=== PATIENT | male | born 1955 | race Caucasian/White ===

== ENCOUNTER 2023-08-24 00:11 | Inpatient (IN) ==
[2023-08-24] MEDS ORDERED: IOPAMIDOL 100 ML BOTTLE IV ONE ×2 (00:12)
[2023-08-24] MEDS: ASPIRIN 81 MG TAB.CHEW CHEWED ONE (00:32)
[2023-08-24] MEDS: METOPROLOL TARTRATE 5 MG/5 ML VIAL IV ONE ×2 (00:42→02:07)
[2023-08-24 00:44] LABS: Basophils # (Auto) 0.04 K/mcL (0.00-0.30); Basophils % (Auto) 0.4 % (0.0-2.0); Eosinophils # (Auto) 0.17 K/mcL (0.00-0.70); Eosinophils % (Auto) 1.6 % (0.0-7.0); Hematocrit 45.1 % (40.1-51.0); Hemoglobin 14.3 g/dL (13.7-17.5); Lymphocytes # (Auto) 2.46 K/mcL (1.50-4.80); Lymphocytes % (Auto) 23.1 % (15.5-49.0); Mean Cell Volume 88.4 fL (80.0-100.0); Mean Corpuscular HGB Conc 31.7 g/dL (31.0-36.0); Mean Platelet Volume 10.9 fL (8.8-12.5); Monocytes # (Auto) 1.15 K/mcL (0.10-0.90); Monocytes % (Auto) 10.8 % (1.0-12.0); Neutrophils % (Auto) 63.8 % (38.0-78.0); Platelet Count 175 K/mcL (140-440); Red Cell Distribution Width 13.2 % (11.5-14.5); WBC 10.7 K/mcL (4.5-11.0)
[2023-08-24] MEDS: fentaNYL 100 MCG/2 ML VIAL IV ONE ×2 (00:52→03:36)
[2023-08-24 01:06] LABS: ALT/SGPT 27 U/L (<40); AST/SGOT 25 U/L (<40); Albumin 3.8 gm/dL (3.2-5.2); Albumin/Globulin Ratio 1.4 (1.0-2.3); Alkaline Phosphatase 71 U/L (39-117); Bilirubin,Total 0.3 mg/dL (0.1-1.0); Blood Urea Nitrogen 22 mg/dL (8-23); Calcium 8.7 mg/dL (8.6-10.4); Carbon Dioxide 26 mmol/L (22-30); Chloride 102 mmol/L (96-108); Globulin 2.7 gm/dL (2.2-3.7); Glomerular Filtration Rate 89; Glucose 106 mg/dL (70-105)
[2023-08-24 01:27] LABS: Partial Thromboplastin Time 27.3 sec (20.0-37.0); Prothrombin Time 14.4 sec (11.9-14.5)
[2023-08-24] MEDS: MAGNESIUM SULFATE 2 GM/50 ML BAG IV ONE (01:43)
[2023-08-24 02:54] LABS: Appearance,Urine Clear (Clear); Bilirubin,Urine Negative (Negative); Color,Urine Yellow; Culture Indicated,Urine No; Glucose,Urine (UA) Negative (Negative); Ketones,Urine Negative (Negative); Leukocyte Esterase,Urine Negative /uL (Negative); Nitrate,Urine Negative (Negative); Protein,Urine Negative (Negative); Specific Gravity,Urine 1.015 (1.000-1.035); Urine Blood Negative ery/mcL (Negative); Urobilinogen,Urine Normal
[2023-08-24] MEDS: APIXABAN 5 MG TABLET PO ONE (03:27)
[2023-08-24] MEDS: FUROSEMIDE 20 MG/2 ML VIAL IV ONE (03:27)
[2023-08-24] MEDS: IPRATROPIUM/ALBUTEROL 3 ML AMPUL.NEB NEB ONE (03:41)
[2023-08-24] MEDS ORDERED: ONDANSETRON 4 MG/2 ML VIAL IV PRN (04:16)
[2023-08-24] MEDS: fentaNYL 100 MCG/2 ML VIAL IV PRN (05:54)
[2023-08-24] MEDS ORDERED: IPRATROPIUM/ALBUTEROL 3 ML AMPUL.NEB NEB PRN (09:25)
[2023-08-24] MEDS ORDERED: PROMETHAZINE 25 MG/ML VIAL IV PRN (09:25)
[2023-08-24] MEDS ORDERED: NITROGLYCERIN 0.4 MG TAB.SUBL SL PRN (09:25)
[2023-08-24] MEDS ORDERED: SENNOSIDES 1 TABLET PO PRN (09:25)
[2023-08-24] MEDS: ACETAMINOPHEN 325 MG TABLET PO PRN (09:30)
[2023-08-24] MEDS: DOXAZOSIN 4 MG TABLET PO SCH (09:32)
[2023-08-24] MEDS: DOCUSATE SODIUM 100 MG CAPSULE PO SCH (09:33)
[2023-08-24] MEDS: DILTIAZEM 125 MG in DEXTROSE 5% IN WATER 100 ML IV SCH (09:55)
[2023-08-24 10:33] LABS: HDL Cholesterol 42 mg/dL (>40); LDL Cholesterol,Calculated 94 mg/dL (<100); Non-HDL Cholesterol 106 mg/dL (<130); Triglycerides 64 mg/dL (<150)
[2023-08-24] MEDS: DILTIAZEM 30 MG TABLET PO SCH (11:09)
[2023-08-24 12:43] LABS: Hemoglobin A1C 6.2 % Hgb (4.0-6.0)
[2023-08-24] MEDS: IBUPROFEN 600 MG TABLET PO SCH (14:42)
[2023-08-24] MEDS: 0.9 % SODIUM CHLORIDE 10 ML SYRINGE IV SCH (14:43)
[2023-08-24] MEDS: APIXABAN 5 MG TABLET PO SCH (21:21)
[2023-08-25] MEDS: DILTIAZEM 30 MG TABLET PO SCH ×2 (05:18→07:37)
[2023-08-25 06:14] LABS: ALT/SGPT 22 U/L (<40); AST/SGOT 19 U/L (<40); Albumin 3.5 gm/dL (3.2-5.2); Albumin/Globulin Ratio 1.3 (1.0-2.3); Alkaline Phosphatase 55 U/L (39-117); Bilirubin,Total 0.8 mg/dL (0.1-1.0); Blood Urea Nitrogen 22 mg/dL (8-23); Carbon Dioxide 26 mmol/L (22-30); Chloride 103 mmol/L (96-108); Globulin 2.8 gm/dL (2.2-3.7); Glomerular Filtration Rate 89; Glucose 122 mg/dL (70-105); Phosphorous 3.3 mg/dL (2.5-4.5)
[2023-08-25 07:34] LABS: Basophils # (Auto) 0.05 K/mcL (0.00-0.30); Basophils % (Auto) 0.6 % (0.0-2.0); Eosinophils # (Auto) 0.14 K/mcL (0.00-0.70); Eosinophils % (Auto) 1.8 % (0.0-7.0); Lymphocytes # (Auto) 1.27 K/mcL (1.50-4.80); Lymphocytes % (Auto) 15.9 % (15.5-49.0); Mean Corpuscular HGB Conc 31.7 g/dL (31.0-36.0); Mean Platelet Volume 11.1 fL (8.8-12.5); Monocytes # (Auto) 1.02 K/mcL (0.10-0.90); Monocytes % (Auto) 12.8 % (1.0-12.0); Neutrophils % (Auto) 68.4 % (38.0-78.0); Platelet Count 158 K/mcL (140-440); RBC 4.66 M/mcL (4.63-6.08); Red Cell Distribution Width 13.3 % (11.5-14.5)
[2023-08-25] MEDS: PANTOPRAZOLE 40 MG TABLET PO SCH (07:37)
[2023-08-25] MEDS ORDERED: DILTIAZEM 125 MG in DEXTROSE 5% IN WATER 100 ML IV PRN (09:45)
[2023-08-25] MEDS ORDERED: DILTIAZEM 30 MG TABLET PO SCH (12:00)
[2023-08-26 06:19] LABS: C-Reactive Protein 6.49 mg/dL (0.03-0.80); Thyroid Stimulating Hormone 1.84 uIU/mL (0.27-5.01)
[2023-08-26 06:41] LABS: Basophils # (Auto) 0.06 K/mcL (0.00-0.30); Basophils % (Auto) 0.8 % (0.0-2.0); Eosinophils # (Auto) 0.17 K/mcL (0.00-0.70); Eosinophils % (Auto) 2.4 % (0.0-7.0); Hematocrit 42.1 % (40.1-51.0); Hemoglobin 13.1 g/dL (13.7-17.5); Lymphocytes # (Auto) 1.27 K/mcL (1.50-4.80); Lymphocytes % (Auto) 17.6 % (15.5-49.0); Mean Corpuscular HGB Conc 31.1 g/dL (31.0-36.0); Mean Platelet Volume 11.2 fL (8.8-12.5); Monocytes % (Auto) 13.9 % (1.0-12.0); Neutrophils % (Auto) 64.6 % (38.0-78.0); Platelet Count 182 K/mcL (140-440); RBC 4.73 M/mcL (4.63-6.08); Red Cell Distribution Width 13.1 % (11.5-14.5); WBC 7.2 K/mcL (4.5-11.0)
[2023-08-26 07:29] LABS: ALT/SGPT 19 U/L (<40); AST/SGOT 19 U/L (<40); Albumin 3.6 gm/dL (3.2-5.2); Albumin/Globulin Ratio 1.3 (1.0-2.3); Alkaline Phosphatase 56 U/L (39-117); Bilirubin,Total 0.6 mg/dL (0.1-1.0); Blood Urea Nitrogen 18 mg/dL (8-23); Calcium 8.2 mg/dL (8.6-10.4); Carbon Dioxide 25 mmol/L (22-30); Chloride 102 mmol/L (96-108); Globulin 2.8 gm/dL (2.2-3.7); Glomerular Filtration Rate 89; Glucose 107 mg/dL (70-105)
[2023-08-26] MEDS: DILTIAZEM 180 MG CAP.XL.24H PO SCH (09:08)
[2023-08-27 06:24] LABS: Basophils # (Auto) 0.06 K/mcL (0.00-0.30); Basophils % (Auto) 0.9 % (0.0-2.0); Eosinophils # (Auto) 0.12 K/mcL (0.00-0.70); Eosinophils % (Auto) 1.8 % (0.0-7.0); Hematocrit 42.7 % (40.1-51.0); Hemoglobin 13.5 g/dL (13.7-17.5); Lymphocytes # (Auto) 1.15 K/mcL (1.50-4.80); Lymphocytes % (Auto) 17.5 % (15.5-49.0); Mean Cell Volume 87.9 fL (80.0-100.0); Mean Corpuscular HGB Conc 31.6 g/dL (31.0-36.0); Mean Platelet Volume 10.7 fL (8.8-12.5); Monocytes # (Auto) 0.76 K/mcL (0.10-0.90); Monocytes % (Auto) 11.5 % (1.0-12.0); Neutrophils % (Auto) 67.7 % (38.0-78.0); Platelet Count 196 K/mcL (140-440); RBC 4.86 M/mcL (4.63-6.08); WBC 6.6 K/mcL (4.5-11.0)
[2023-08-27 06:27] LABS: ALT/SGPT 17 U/L (<40); AST/SGOT 18 U/L (<40); Albumin 3.6 gm/dL (3.2-5.2); Albumin/Globulin Ratio 1.3 (1.0-2.3); Alkaline Phosphatase 58 U/L (39-117); Bilirubin,Total 0.6 mg/dL (0.1-1.0); Blood Urea Nitrogen 15 mg/dL (8-23); Calcium 8.3 mg/dL (8.6-10.4); Carbon Dioxide 24 mmol/L (22-30); Chloride 105 mmol/L (96-108); Globulin 2.8 gm/dL (2.2-3.7); Glomerular Filtration Rate 93; Glucose 109 mg/dL (70-105)
[2023-08-27] MEDS: DILTIAZEM 240 MG CAP.XL.24H PO SCH (06:54)
[2023-08-27] MEDS: METOPROLOL TARTRATE 5 MG/5 ML VIAL IV PRN (08:51)
[2023-08-27] MEDS ORDERED: DILTIAZEM 240 MG CAP.XL.24H PO SCH (09:00)
[2023-08-27] MEDS: COLCHICINE 0.6 MG CAPSULE PO SCH (11:39)
== END 2023-08-27 16:55 | disposition home or self-care (01) | DRG 309 ==
LOC: ED 00:11 → ICU 05:09
PROVIDERS: ADMIT Internal Medicine; ATTEND Internal Medicine